=== PATIENT | male | born 1955 | race African-American/Black ===

== ENCOUNTER 2017-06-21 15:51 | Emergency (ER) | payer MEDICAID, OTHER ==
[~2017-06-21] VITALS: Ht 170.2 cm; Wt 70.0 kg
[~2017-06-21 15:51] MED LIST: AMLO5TAB4 PO; ASPI-664 PO; PHEN100C PO
[2017-06-21 15:56] VITALS: Ht 170.2 cm; Wt 70.0 kg
[2017-06-21] MEDS ORDERED: morphine 2 MG INJ IV STA (16:02)
[2017-06-21] MEDS ORDERED: ONDANSETRON 4 MG INJ IV STA (16:02)
[2017-06-21] MEDS ORDERED: DIPHTH/TET/ACEL PERTUSS (ADULT) 0.5 ML VIAL IM* ONE (16:30)
[2017-06-21 16:47] LABS: BASOPHILS % 0.5 % (0.0-2.0); EOSINOPHILS % 0.9 % (0.0-7.0); HEMATOCRIT 44.8 % (42.0-52.0); HEMOGLOBIN 15.2 g/dl (14.0-18.0); LYMPHOCYTES # 1.8 10^3/ul (0.8-2.9); LYMPHOCYTES % 41.9 % (15.0-51.0); MEAN CORPUSCULAR HEMOGLOBIN 30.7 pg (29.0-33.0); MEAN CORPUSCULAR HGB CONC 33.9 g/dl (32.0-37.0); MEAN CORPUSCULAR VOLUME 90.5 fl (82.0-101.0); MEAN PLATELET VOLUME 10.4 fl (7.4-10.4); MONOCYTE # 0.5 10^3/ul (0.3-0.9); MONOCYTES % 11.3 % (0.0-11.0); NEUTROPHILS % 45.2 % (39.0-77.0); PLATELET COUNT 169 10^3/UL (140-415); RED BLOOD COUNT 4.95 10^6/ul (4.70-6.10); RED CELL DISTRIBUTION WIDTH 12.7 % (11.5-14.5); WHITE BLOOD COUNT 4.3 10^3/ul (4.8-10.8)
[2017-06-21 17:05] LABS: ALANINE AMINOTRANSFERASE 62 IU/L (13-69); ALBUMIN 4.1 g/dl (3.3-4.9); ALBUMIN/GLOBULIN RATIO 1.24; ALKALINE PHOSPHATASE 78 IU/L (42-121); ANION GAP 18 (8-16); ASPARTATE AMINO TRANSFERASE 70 IU/L (15-46); BILIRUBIN,INDIRECT 0.3 mg/dl (0-1.1); BILIRUBIN,TOTAL 0.3 mg/dl (0.2-1.3); BLOOD UREA NITROGEN 10 mg/dl (7-20); CALCIUM 8.8 mg/dl (8.4-10.2); CARBON DIOXIDE 21 mmol/L (21-31); CHLORIDE 109 mmol/L (97-110); CREATININE 0.71 mg/dl (0.61-1.24); GLUCOSE 91 mg/dl (70-220); POTASSIUM 3.7 mmol/L (3.5-5.1); SODIUM 144 mmol/L (135-144); TOTAL PROTEIN 7.4 g/dl (6.1-8.1)
[2017-06-21 17:06] LABS: INR 0.85; PROTIME 11.7 Sec (11.9-14.9); PT RATIO 0.9
[2017-06-21 17:07] LABS: PARTIAL THROMBOPLASTIN TIME 24.9 Sec (25.0-35.0)
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
[2017-06-21 17:17] LABS: TROPONIN-I < 0.012 ng/ml (0.00-0.12)
--- NOTE | 2017-06-21 17:18 | RADRPT ---
PROCEDURE: XR Chest. CLINICAL INDICATION: Chest pain TECHNIQUE: Single AP view of the chest was obtained COMPARISON: 07/09/2016 FINDINGS: Heart is borderline enlarged. Lungs are clear. No acute osseous abnormality. IMPRESSION: Mild cardiomegaly. No acute pulmonary disease. RPTAT: AA Physician Jenaro Date Time Electronically viewed and signed by Chandrakant Pepe Physician on 06/21/2017 17:18 WV/
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
[2017-06-21] MEDS ORDERED: IBUP800T25 PO (17:52)
[2017-06-21 18:34] VITALS: BP 138/78; PULSE 86; RESP 20; TEMP 98.3
== END 2017-06-21 18:35 | disposition home or self-care (01) ==
LOC: E/R 15:51
DX: S06.0X1A Concussion with loss of consciousness of 30 minutes or less, initial encounter (principal); R40.2252 Coma scale, best verbal response, oriented, at arrival to emergency department; S13.9XXA Sprain of joints and ligaments of unspecified parts of neck, initial encounter; S80.212A Abrasion, left knee, initial encounter; R07.9 Chest pain, unspecified; R40.2142 Coma scale, eyes open, spontaneous, at arrival to emergency department; R40.2362 Coma scale, best motor response, obeys commands, at arrival to emergency department; V19.00XA Pedal cycle driver injured in collision with unspecified motor vehicles in nontraffic accident, initial encounter; Z87.891 Personal history of nicotine dependence; Z23 Encounter for immunization
CPT/HCPCS: 70450; 71010; 72125; 73562; 80053; 84484; 85025; 85610; 85730; 90471; 90715; 93005; 96374; 96375; J2270; J2405; Z7502